=== PATIENT | female | born 1960 | race Caucasian/White ===

== ENCOUNTER 2022-05-10 02:29 | Emergency (ER) | payer OTHER ==
[~2022-05-10] VITALS: Ht 160 cm; Wt 109.0 kg
[2022-05-10 03:45] LABS: Basophils # (auto) 0.1 10 ^3/uL (0-0.2); Basophils % (auto) 0.8 % (0.0-2.0); Eosinophils # (auto) 0.2 10 ^3/uL (0-0.8); Eosinophils % (auto) 1.8 % (0.0-7.0); Hemoglobin 14.9 g/dL (12.2-16.2); Lymphocytes # (auto) 2.1 10 ^3/uL (0.4-5.4); Lymphocytes % (auto) 20.8 % (10.0-50.0); Mean Corpuscular Hemoglobin 28.3 pg (28.0-32.0); Mean Corpuscular Hgb Conc. 33.2 g/dL (32.0-36.0); Mean Corpuscular Volume 85.2 fL (80.0-100.0); Monocytes # (auto) 0.7 10 ^3/uL (0-1.3); Monocytes % (auto) 6.7 % (0.0-12.0); Neutrophils % (auto) 69.9 % (37.0-80.0); Nucleated Red Blood Cells % 0.1 %; Red Blood Cells 5.28 10^6/uL (4.0-5.20); Red Cell Distribution Width 14.9 % (11.8-14.3); White Blood Cell 10.1 10^3/uL (4.4-10.8)
[2022-05-10 03:59] LABS: Albumin 3.8 g/dL (3.4-5.0); BUN/Creatinine Ratio 22.7; Calcium 9.3 mg/dL (8.5-10.1); Potassium 4.1 mmol/L (3.5-5.1)
[2022-05-10 04:02] LABS: Bilirubin, Total 0.6 mg/dL (0.2-1.0); Total Protein 7.5 g/dL (6.4-8.2)
[2022-05-10 04:16] LABS: Urine Bacteria NONE SEEN /hpf (None Seen); Urine Blood TRACE /uL (Negative); Urine WBC 4 /hpf (0 - 5)
[2022-05-10 08:30] VITALS: BP 150/92
[2022-05-10] MEDS ORDERED: ONDA-144 PO (08:44)
== END 2022-05-10 08:57 | disposition home or self-care (01) ==
LOC: ER 02:29
DX: K46.9 Unspecified abdominal hernia without obstruction or gangrene (principal); I10 Essential (primary) hypertension; Z90.89 Acquired absence of other organs; Z90.710 Acquired absence of both cervix and uterus; Z88.8 Allergy status to other drugs, medicaments and biological substances
CPT/HCPCS: 36415; 74176; 80053; 81001; 83690; 85025